=== PATIENT | female | born 1950 | race Caucasian/White ===

== ENCOUNTER 2018-11-05 19:00 | Outpatient (CLI) | payer MEDICARE, BC ==
[2015-10-28 11:00] VITALS: BMI 37.1
[~2018-11-05 19:00] MED LIST: CALTRATE 600 M600 M1 PO; COLON CLEANSE PO; HYDROCODONE-APA1 TAB PO; NIASPAN500 MG PO; PEPCID20 MG PO; PERICOLACE PO; PHENERGAN25 M1 PO; PLANT ENZYMES PO; PRILOSEC20 MG PO; PROBIOTIC1 EAC1 PO; TUMS500 MG PO; VITAMIN D31000 UNI2; [UNRECOGNIZED DRUG - OTHER] PO
== END 2018-11-05 23:59 | disposition home or self-care (01) ==
LOC: D.MAMMO 19:00
DX: Z12.31 Encounter for screening mammogram for malignant neoplasm of breast (principal)

== ENCOUNTER 2018-12-26 19:00 | Outpatient (CLI) | payer MEDICARE, BC ==
[2015-10-28 11:00] VITALS: BMI 37.1
== END 2018-12-26 23:59 | disposition home or self-care (01) ==
LOC: D.MAMMO 19:00
PROVIDERS: ATTEND Family Medicine
DX: R92.8 Other abnormal and inconclusive findings on diagnostic imaging of breast (principal)

== ENCOUNTER → 2019-02-18 08:22 | Outpatient (CLI) | payer MEDICARE, OTHER ==
[2015-10-28 11:00] VITALS: BMI 37.1
== END | disposition home or self-care (01) ==
LOC: D.US 08:22
PROVIDERS: ATTEND Family Medicine
DX: R92.8 Other abnormal and inconclusive findings on diagnostic imaging of breast (principal)